=== PATIENT | male | born 1995 | race Two or more races ===

== ENCOUNTER 2017-07-06 18:01 | Emergency (ER) | payer OTHER, SELFPAY ==
[~2017-07-06] VITALS: Ht 180.3 cm; Wt 116.6 kg
[2017-07-06] MEDS ORDERED: ASPIRIN 81 MG TABLET CHEW PO ONE (18:30)
[2017-07-06] MEDS ORDERED: SODIUM CHLORIDE FLUSH 10ML SYR IVF ONE (18:30)
[2017-07-06] MEDS ORDERED: ASPIRIN 81 MG TABLET CHEW ONE (18:47)
[2017-07-06 18:49] LABS: HEMATOCRIT 46.7 % (39.2-51.8); HEMOGLOBIN 15.9 g/dL (13.7-18.0); WHITE BLOOD COUNT 11.3 x10^3/uL (3.4-10)
[2017-07-06 18:53] LABS: BLOOD UREA NITROGEN 16 mg/dL (7-18)
[2017-07-06 18:58] LABS: IS PT STATUS REG ER OR PRE ER? YES
[2017-07-06 20:19] VITALS: BP 131/81
== END 2017-07-06 20:46 | disposition home or self-care (01) ==
LOC: ED 20:40
DX: R07.89 Other chest pain (principal)
CPT/HCPCS: 36415; 71010; 80048; 82040; 83880; 84484; 85025; 93005; 99285